=== PATIENT | female | born 2000 | race African-American/Black ===

== ENCOUNTER 2020-10-09 12:52 | Emergency (ER) | payer MEDICAID, OTHER ==
[~2020-10-09] VITALS: Ht 157.5 cm; Wt 46.3 kg
--- NOTE | 2020-10-09 13:00 | NUR ---
DR LONGO AT BEDSIDE
--- NOTE | 2020-10-09 13:01 | NUR ---
NICHOLAS COLON " BY STARVING ". -HI, TO ER BED 14, HOOKED TO MONITOR. CHANGED TO HOSP GOWN, WARM BLANKET PROVIDED, PATIENT AAO x 3, AWAITING MD JIMENES.
[2020-10-09 13:28] LABS: BASOPHILS % (AUTO) 0.3 % (0.0-2.0); EOSINOPHILS % (AUTO) 0.6 % (0.0-6.0); HEMATOCRIT 39 % (33-45); HEMOGLOBIN 12.7 g/dL (11.5-14.8); LYMPHOCYTES # (AUTO) 1.4 /CMM (0.8-4.8); LYMPHOCYTES % (AUTO) 19.6 % (20.0-44.0); MEAN CORPUSCULAR HGB CONC 32 g/dl (31.0-36.0); MEAN CORPUSCULAR VOLUME 83 fL (82-100); MONOCYTES # (AUTO) 0.7 /CMM (0.1-1.30); MONOCYTES % (AUTO) 9.6 % (2.0-12.0); NEUTROPHILS % (AUTO) 69.9 % (43.0-81.0); PLATELET COUNT (AUTO) 300 /CMM (150-450); RED BLOOD CELL COUNT(AUTO) 4.78 MIL/uL (4.0-5.2); WHITE BLOOD COUNT (AUTO) 7.1 K/uL (4.3-11.0)
[2020-10-09 13:29] LABS: BILIRUBIN,URINE Negative (NEGATIVE); COLOR,URINE YELLOW (YELLOW); LEUKOCYTE ESTERASE ,URINE Negative (NEGATIVE); NITRITE, URINE Negative (NEGATIVE); PROTEIN,URINE Negative (NEGATIVE); UGLUCOSE 500 MG/DL mg/dL (NEGATIVE); UROBILINOGEN,URINE 0.2 EU/dL (0.2)
[2020-10-09 13:42] LABS: ACETAMINOPHEN 0 ug/ml (10-30); ALANINE AMINOTRANSFERASE 103 U/L (12-78); ALBUMIN 4.4 g/dL (3.4-5.0); ALCOHOL, BLOOD < 3 mg/dL (0-0); ALKALINE PHOSPHATASE 56 U/L (46-116); ASPARTATE AMINOTRANSFERASE 31 U/L (15-37); BILIRUBIN,DIRECT 0.1 mg/dL (0.0-0.2); BILIRUBIN,TOTAL 0.3 mg/dL (0.2-1.0); CALCIUM, SERUM 9.5 mg/dL (8.5-10.1); CARBON DIOXIDE 32 mmol/L (21-32); CHLORIDE 101 mmol/L (98-107); CREATININE 0.7 mg/dL (0.6-1.3); GLUCOSE 156 mg/dL (74-106); SODIUM SERUM 141 mmol/L (136-145); TOTAL PROTEIN, SERUM 8.3 g/dL (6.4-8.2); UREA NITROGEN, BLOOD 16 mg/dL (7-18)
[2020-10-09 14:33] LABS: BACTERIA,URINE Rare /HPF (None Seen); RBC,URINE 0-2 /HPF (0-2); SQUAMOUS EPITHELIAL CELL,UR Few /HPF (None Seen); WBC,URINE 0-2 /HPF (0-3)
--- NOTE | 2020-10-09 15:00 | NUR ---
PT REQUESTED SANDWICH AND JUICE. SANDWICH AND JUICE PROVIDED.
--- NOTE | 2020-10-09 18:58 | NUR ---
RAPID COVID SWAB DONE AND SENT TO LAB
--- NOTE | 2020-10-09 20:05 | NUR ---
LAB CALLED REGARDING NEGATIVE COVID RESULT.
--- NOTE | 2020-10-09 21:08 | NUR ---
RECIEVED ACCEPTENCE INFO FROM SHAKIR HARVEY ACCEPTING DR MCKEON/ DR JOHNSTON NUMBER FOR REPORT UNIT 2
--- NOTE | 2020-10-09 21:16 | NUR ---
[facility] ETA [phone]
--- NOTE | 2020-10-09 21:43 | NUR ---
REPORT GIVEN TO MARCELA ALLRED.
[2020-10-09 21:45] VITALS: BP 119/63
== END 2020-10-09 21:45 ==
LOC: EDBD 12:52 → ER 13:01
DX: R45.851 Suicidal ideations (principal); Z59.0 Homelessness; Z20.822 Contact with and (suspected) exposure to COVID-19; F20.9 Schizophrenia, unspecified
CPT/HCPCS: 36415; 80048; 80076; 80299; 80307; 80320; 81001; 84703; 85025; 87426; 99285; C9803; G0480